=== PATIENT | male | born 1960 | race Caucasian/White ===

== ENCOUNTER 2019-01-01 01:02 | Observation (INO) ==
[2019-01-01] MEDS ORDERED: *HR* Promethazine 25 MG/ML VIAL IVP PRN (01:19)
[2019-01-01] MEDS ORDERED: *HR* LORazepam 2 MG/ML VIAL IVP PRN ×2 (01:19)
[2019-01-01] MEDS ORDERED: MVI, adult with vitamin K 10 ML in 0.9 % Sodium Chloride 1,000 ML IVC ONE (01:19)
[2019-01-01 01:52] LABS: Basophils # 0.1 K/mcL (0.0-0.2); Basophils % 0.5 %; Eosinophils # 0.1 K/mcL (0.0-0.6); Eosinophils % 0.8 %; Hemoglobin 11.2 g/dL (12.9-16.9); Immature Granulocytes % 0.9 % (0-4); Lymphocytes # 2.2 K/mcL (0.6-4.6); Lymphocytes % 13.7 %; Mean Corpuscular HGB Conc 33.9 g/dL (31.6-35.5); Mean Corpuscular Hemoglobin 34.3 pg (28.0-33.3); Mean Corpuscular Volume 100.9 fL (83.0-100.0); Mean Platelet Volume 10.4 fL (9.4-12.4); Monocytes # 1.1 K/mcL (0.0-1.3); Monocytes % 6.8 %; Neutrophils # 12.5 K/mcL (1.6-8.9); Platelet Count 344 K/mcL (140-400); Red Blood Count 3.27 M/mcL (4.19-5.50); Segmented Neutrophils % 77.3 %
[2019-01-01 01:59] LABS: Prothrombin Time 11.2 Seconds (9.4-12.1)
[2019-01-01 02:02] LABS: Activated Partial Thrombo Time 27.7 Seconds (26.0-36.0)
[2019-01-01 02:15] LABS: Alanine Aminotransferase 17 Units/L (7-52); Albumin 3.6 g/dL (3.5-5.7); Albumin/Globulin Ratio 1.6 (1.1-2.2); Alkaline Phosphatase 56 Units/L (34-104); Aspartate Amino Transferase 14 Units/L (13-39); BUN/Creatinine Ratio 36 (6-26); Bilirubin,Direct 0.1 mg/dL (0.0-0.2); Bilirubin,Indirect 0.6 mg/dL (0.0-1.2); Bilirubin,Total 0.7 mg/dL (0.3-1.0); Blood Urea Nitrogen 30 mg/dL (6-20); Calcium 8.5 mg/dL (8.6-10.3); Carbon Dioxide 18 mEq/L (23-29); Chloride 112 mEq/L (98-107); Globulin 2.3 g/dL (2.4-3.5); Glucose 106 mg/dL (70-105); Osmolality,Calculated 293 (280-300); Potassium 3.7 mEq/L (3.5-5.1); Sodium 138 mEq/L (136-145); Total Protein 5.9 g/dL (6.4-8.9); eGFR For Non-African Americans > 60 (> 60)
--- NOTE | 2019-01-01 02:23 | Internal Med History&Physical ---
Date of Encounter: 01/01/19 Time of Encounter: 02:21 Internal Medicine - H&P: HPI Chief complaint: vomiting Admitted From: Home Plans for Post Hospital Care: Home History of present illness: Gabriele Anderson is a 58-year-old male smoker with a history of COPD, coronary artery disease status post ICD and an active alcoholic who tells me he drinks a 12 pack of beer daily presenting on transfer from [facility] where he went to with complaints of nausea, vomiting and diarrhea for 3 days. Over there he was seen to have an elevated white blood cell count and lactic acid normalized after fluid resuscitation. He had a CT of his chest and abdomen/pelvis done with no acute abnormalities found. As per the presenting provider, he quietly confided in her that he has been having episodes of dark coffee-ground emesis as well as dark tarry stool in the last 2 days. For this reason he was started on fluids and transferred here for further management. At the time of my assessment he has no complaints. Vitals: Reviewed General: Well-developed male lying in bed in no acute distress. Skin: Pale, dry, warm HEENT: Moist mucous membranes. No conjunctivae pallor. Neck: No lymphadenopathy. No JVD. No carotid bruits. No palpable thyroid. Chest: Normal thoracic expansion. Normal breath sounds. Clear to auscultation. Heart: Normal S1 & S2; rhythmic. No rubs or murmurs. Abdomen: Non-distended, soft and non-tender to palpation. No peritoneal reaction. Extremities: No clubbing, cyanosis or edema. No calf tenderness. Normal distal pulses. Neurological: Awake, alert and oriented to person, place and time. No focal deficits. Psych: Affect appropriate. Internal Medicine - H&P: Meds Allergy/AdvReac Type Severity Reaction Status Date / Time No Known Allergies Allergy Verified 01/01/19 02:20 All Systems PM: A 10-system review of systems was performed and is negative for pertinent findings except as documented above in the HPI. Family history reviewed and found non-contributory. - Constitutional Vitals: Temp Pulse Resp BP Pulse Ox 98.3 F 76 18 96/65 96 01/01/19 02:20 01/01/19 02:20 01/01/19 02:20 01/01/19 02:20 01/01/19 02:20 Exam: . Internal Med - H&P Results - Labs CBC & Chem 7: 01/01/19 01:33 01/01/19 01:33 Labs: Short CBC 01/01/19 Range/Units 01:33 WBC 16.1 H (4.3-11.1) K/mcL Hgb 11.2 L (12.9-16.9) g/dL Hct 33.0 L (37.5-50.1) % Plt Count 344 (140-400) K/mcL Neutrophils # 12.5 H (1.6-8.9) K/mcL BMP 01/01/19 01:33 Sodium 138 Potassium 3.7 Chloride 112 H Carbon Dioxide 18 L BUN 30 H Creatinine 0.83 Glucose 106 H Calcium 8.5 L Liver Function 01/01/19 Range/Units 01:33 Total Bilirubin 0.7 (0.3-1.0) mg/dL Direct Bilirubin 0.1 (0.0-0.2) mg/dL AST 14 (13-39) Units/L ALT 17 (7-52) Units/L Alkaline Phosphatase 56 (34-104) Units/L Albumin 3.6 (3.5-5.7) g/dL - Assessment and Plan (1) UGIB (upper gastrointestinal bleed) Current Visit: Yes Status: Acute Assessment and plan: Presumed based on the patient's report of dark tarry stool as well as vomitus especially given his history of voluminous alcohol intake. Suspect it may be secondary to alcoholic erythematous gastritis. Will provide PPI for now. Collect a stool sample for occult blood testing as we have not witnessed it. Will keep NPO and consult GI for evaluation. (2) Leukocytosis Current Visit: Yes Status: Acute Assessment and plan: The etiology is unclear. This was equally evidenced at the outside hospital. No evidence of infection is found be it clinically or radiologically. Perhaps a response to the acute gastroenteric process he presented with? Will continue to monitor. Qualifiers: Leukocytosis type: unspecified Qualified Code(s): D72.829 - Elevated white blood cell count, unspecified (3) Alcohol abuse Current Visit: Yes Status: Acute Assessment and plan: CIWA protocol started and banana bag ordered taking into account it has been 48 hours without a drink. 5 minutes were spent counseling and educating the patient on this habit. information services assistant and resources were made available. (4) CAD (coronary artery disease) Current Visit: Yes Status: Acute Assessment and plan: Will hold antiplatelet therapy for now. Reconcile home medications. Currently asymptomatic. Monitor on telemetry. Qualifiers: Coronary Disease-Associated Artery/Lesion type: [place] artery [place] vs. transplanted heart: [place] heart Associated angina: without angina Qualified Code(s): I25.10 - Atherosclerotic heart disease of [place] coronary artery without angina pectoris (5) COPD (chronic obstructive pulmonary disease) Current Visit: Yes Status: Chronic Assessment and plan: Appears to be asymptomatic at this time. Will provide nebulizer therapy as needed. Qualifiers: COPD type: unspecified COPD Qualified Code(s): J44.9 - Chronic obstructive pulmonary disease, unspecified (6) Smoker Current Visit: Yes Status: Acute Assessment and plan: 5 minutes were spent counseling and educating the patient on this habit. information services assistant and resources were made available. - Time Spent With Patient Total time spent is greater than 50% in coordination of care (as documented) at patient's floor/unit and/or counseling patient: Greater than 35 minutes
[2019-01-01] MEDS: Pantoprazole 40 MG in 0.9 % Sodium Chloride Mini Bag 100 ML IVC SCH ×5 (06:22→23:28)
[2019-01-01] MEDS ORDERED: Aspirin Enteric Coated 81 MG Tablet PO SCH (10:45)
--- NOTE | 2019-01-01 10:49 | Event Note ---
Date of Encounter: 01/01/19 Time of Encounter: 10:46 patient examined at bedside, with no signs of distress currently. Patient voiced complaints of thirst, it was explained to the patient the importance of remaining NPO until he speaks with GI specialist. Patient states that he had one episode of tarry stool this am, which was both formed and liquid.
--- NOTE | 2019-01-01 11:07 | Anesthesia Evaluation PreOp ---
Date of Encounter: 01/01/19 Time of Encounter: 11:05 - Past History Planned Operation: EGD Cardiac History: Denies any Significant Hx (smoker with a history of COPD, coronary artery disease status post ICD and an active alcoholic who tells me he drinks a 12 pack of beer daily), Pacemaker/ICD (interogated today) Pulmonary History: Smoker, COPD DIGITAL PROJECT COORDINATOR History: Denies Any Significant HX Other Medical History: Denies Any Significant HX Anesthesia History: No Prior Anesthetic Complications Alcohol Use: heavy (12 pk beer daily) Drug use: none Medications and Allergies Aspirin [Lo-Dose Aspirin EC] 81 mg PO DAILY 01/01/19 [History] Atorvastatin Calcium [Lipitor] 20 mg PO DAILY 01/01/19 [History] Carvedilol [Coreg] 6.25 mg PO BID 01/01/19 [History] Clopidogrel [Plavix] 75 mg PO DAILY 01/01/19 [History] Furosemide [Lasix] 20 mg PO BID 01/01/19 [History] Isosorbide MONOnitrate (24 HR) [Imdur] 30 mg PO DAILY 01/01/19 [History] Pramipexole [Mirapex] 1 mg PO BID 01/01/19 [History] RX: Sacubitril/Valsartan 24/26 mg [Entresto 24 mg-26 mg Tablet] 1 tab PO BID 01/01/19 [History] Spironolactone 25 mg PO DAILY 01/01/19 [History] Allergy/AdvReac Type Severity Reaction Status Date / Time No Known Allergies Allergy Verified 01/01/19 02:20 - Meds/Allergy Pre-op Review Medications Reviewed: Yes Allergies Reviewed: Yes Beta Blockers on Current Med List: Yes If Beta Blockers taken, Date/Time (Last Dose taken): 10:39 today Anesthesia Results - Labs 01/01/19 01:33 01/01/19 01:33 - Imaging Additional studies: Echo 04/25/12 EF 35-40% trivial valvular dx No Pulm. Htn Anesthesia Exam Vital Signs/O2 Sat, Most Current Temp Pulse Resp BP Pulse Ox 97.5 F L 104 18 136/76 99 01/01/19 06:56 01/01/19 06:56 01/01/19 06:56 01/01/19 06:56 01/01/19 06:56 NPO (# of Hours): > 8 hrs Pain Scale: 0 Pain Scale Used: Numeric (1 - 10) - HEENT Pupil (Motor): Pupils equal, EOMI Mallampati: III Teeth: Edentulous Oral Opening: Greater than 3 - DIGITAL PROJECT COORDINATOR LOC: Oriented DIGITAL PROJECT COORDINATOR Motor: Normal RUE, Normal LUE, Normal RLE, Normal LLE, Normal Face DIGITAL PROJECT COORDINATOR Sensory: Normal: RUE, LUE, RLE, LLE, Face - Cardiac Rhythm: Regular Murmur: None JVD: No Carotid Bruit: No - Pulmonary Breath Sounds: bilateral Clear Respiratory Effort: Symmetrical Anesthesia Assess/Plan ASA Score: 3 Level of consciousness: Cooperative Anesthetic Plan: MAC Autologous Blood: Yes Monitoring Plan: Standard Monitors Recovery Plan: Other
[2019-01-01] MEDS ORDERED: *HR* Propofol 200 MG/20 ML VIAL IVP ONE ×2 (12:44→12:52)
--- NOTE | 2019-01-01 13:27 | Gastroenterology Consult Note ---
<Wilfrido Cardoza - Last Filed: 01/01/19 13:24> Date of Encounter: 01/01/19 Time of Encounter: 10:45 - Assessment and plan (1) UGIB (upper gastrointestinal bleed) Status: Acute Assessment and plan: Hgb 11.2 with MCV 100.9 on admission. Continue to monitor CBC and transfuse PRBC as needed. Patient with one episode of coffee-ground emesis and several episodes of dark tarry stools. Plan for EGD today to r/o esophagitis, gastritis, duodenitis, PUD, MW tear, or AVM. Keep NPO for EGD. (2) Alcohol abuse Status: Acute Assessment and plan: Encouraged alcohol cessation. - Time Spent With Patient Total time spent is greater than 50% in coordination of care (as documented) at patient's floor/unit and/or counseling patient: GI History of Present Illness - Data of Consult Patient: new to practice Consult date: 01/01/19 Requesting Physician: Mikala Doherty MD - Consult Narrative Reason for consult: GI Bleed History of present illness: Mr. Anderson is a 58 year old male with PMHx of COPD, CAD s/p ICD, alcohol abuse (drinks 12 pack beer daily) who was transferred from [facility] due to melena and coffee-ground emesis. He presented to [facility] with nausea, vomiting, and diarrhea for 3 days[address] He had a [address] of his chest and abdomen/pelvis done with no acute abnormalities found. He reports one episode of coffee-ground emesis and several episodes of dark tarry stools. He denies fever, chills, chest pain, abdominal pain, hematochezia. Hgb 11.2 with MCV 100.9 on admission. Procedures: None NSAIDs: ASA Anticoagulation: Plavix Past Med Surg Social Fam HX - Past Medical History Medical history: CHF, COPD, hypertension, myocardial infarction Additional medical history: Pacer/defib, Hernia, Depression. IA with 6 stents. Psychiatric history: depression - Social History Smoking Status: Current every day smoker Alcohol use: heavy (12 pk beer daily) Drug use: none - Family History Father Living Status: Age at : 70 Cause of : IA Hx Family Cardiac Disorders: Yes (IA) Hx Family Respiratory Disorders: Yes Hx Family Cancer: No Hx Family GI Disorders: No Hx Family Genitourinary Disorders: No Hx Family Endocrine Disorder: No Hx Family Musculoskeletal Disorders: No Hx Family Neuromuscular Disorders: No Hx Family Neurologic Disorders: No Hx Family HEENT Disorders: No Hx Family Autoimmune Disorders: No Hx Family Reproductive Disorders: No Hx Family Psychosocial Disorders: No Hx Family Medical Disorders: No Mother Living Status: Age at : 69 Cause of : [place] Hx Family Cardiac Disorders: Yes (IA) Hx Family Respiratory Disorders: Yes (COPD) Hx Family Cancer: No Hx Family GI Disorders: No Hx Family Genitourinary Disorders: No Hx Family Endocrine Disorder: Yes (DM) Hx Family Musculoskeletal Disorders: No Hx Family Neuromuscular Disorders: No Hx Family Neurologic Disorders: No Hx Family HEENT Disorders: No Hx Family Autoimmune Disorders: No Hx Family Reproductive Disorders: No Hx Family Psychosocial Disorders: No Hx Family Medical Disorders: No - Gastrointestinal Gastrointestinal: Present: as per HPI - Constitutional Constitutional: as per HPI - EENT Eyes: as per HPI Ears: Present: as per HPI Nose, mouth and throat: Present: as per HPI - Cardiovascular Cardiovascular ROS: Present: as per HPI - Respiratory Respiratory IM: Present: as per HPI - Genitourinary Genitourinary: Absent: change in color, Urinary frequency - Neurological ROS Neurological GI: Present: as per HPI - Hematologic/Lymphatic Hematologic/Lymphatic pediatric: Present: as per HPI - Musculoskeletal Musculoskeletal ROS GI: Present: as per HPI - Integumentary Integumentary GI: Present: as per HPI - Psychiatric ROS Psychiatric GI: Present: as per HPI - Endocrine Endocrine IM: Present: as per HPI - Constitutional Vitals: Temp Pulse Resp BP Pulse Ox 98.1 F 75 18 117/69 95 01/01/19 11:15 01/01/19 11:15 01/01/19 11:15 01/01/19 11:15 01/01/19 11:15 General appearance: Present: cooperative, A&O X 3, no acute distress, answers questions appropriately - Head Head exam: Present: atraumatic, normocephalic - Eye Eye exam: Present: normal appearance, sclera anicteric - ENT ENT exam: Present: mucous membranes moist - Neck Neck exam general surgery: Present: normal inspection, trachea midline - Respiratory Respiratory exam: Present: CTAB. Absent: rales, rhonchi - Cardiovascular Cardiovascular exam: Present: RRR, +S1, +S2 - GI/Abdominal GI/Abdominal exam: Present: soft, no peritoneal signs. Absent: distended, firm, guarding, tenderness - Rectal Rectal exam: Present: deferred - Extremities Exam Extremities exam: Present: warm - Neurological Exam Neurological exam: Present: no focal deficits - Psychiatric Psychiatric exam: Present: normal affect, normal mood - Skin Skin exam: Present: dry, intact, normal color, warm Results - Labs CBC & Chem 7: 01/01/19 01:33 01/01/19 01:33 Labs: Last Result Calcium 8.5 mg/dL (8.6-10.3) L 01/01/19 01:33 Stool Occult Blood Positive (Negative) A 01/01/19 07:10 Entire Visit Hgb 11.2 g/dL (12.9-16.9) L 01/01/19 01:33 Hct 33.0 % (37.5-50.1) L 01/01/19 01:33 PT 11.2 Seconds (9.4-12.1) 01/01/19 01:33 Total Bilirubin 0.7 mg/dL (0.3-1.0) 01/01/19 01:33 AST 14 Units/L (13-39) 01/01/19 01:33 ALT 17 Units/L (7-52) 01/01/19 01:33 - ABG ABG results: PT/INR, D-dimer PT 11.2 Seconds (9.4-12.1) 01/01/19 01:33 Consult Discharge Plan - Plan Instructions: Sucralfate (By mouth), Omeprazole (By mouth) Additional Instructions: Hold Plavix today and tomorrow resume on Saturday01/04/2019-stop aspirin Hold Coreg today-monitor blood pressure and keep a log Referrals: Franko Mena MD [Partnered Physician] - (Appointment has been requested. Our offices will call with an appointment time and date. ) Demetrius Tucker MD [Non-Partnered Physician] - 01/09/19 10:00 am () Prescriptions: RX: Omeprazole [PriLOSEC] 40 mg PO DAILY@0630 #30 capsule. RX: Sucralfate [Carafate] 1 gm PO QIDAC #120 tablet <Franko Mena - Last Filed: 01/07/19 05:38> Date of Encounter: 01/01/19 - Time Spent With Patient Total time spent is greater than 50% in coordination of care (as documented) at patient's floor/unit and/or counseling patient: GI History of Present Illness - Data of Consult Requesting Physician: Mikala Doherty MD - Consult Narrative History of present illness: Mr. Anderson is a 58 year old male - Constitutional Vitals: Temp Pulse Resp BP Pulse Ox 98.4 F 74 16 98/56 78 01/02/19 07:06 01/02/19 07:06 01/02/19 07:06 01/02/19 07:06 01/02/19 07:06 Results - Labs CBC & Chem 7: 01/02/19 08:25 01/02/19 08:14 Labs: Last Result Calcium 8.4 mg/dL (8.6-10.3) L 01/02/19 08:14 Stool Occult Blood Positive (Negative) A 01/01/19 07:10 Entire Visit Hgb 9.9 g/dL (12.9-16.9) L 01/02/19 08:25 Hct 29.2 % (37.5-50.1) L 01/02/19 08:25 PT 11.2 Seconds (9.4-12.1) 01/01/19 01:33 Total Bilirubin 0.7 mg/dL (0.3-1.0) 01/01/19 01:33 AST 14 Units/L (13-39) 01/01/19 01:33 ALT 17 Units/L (7-52) 01/01/19 01:33 - ABG ABG results: PT/INR, D-dimer PT 11.2 Seconds (9.4-12.1) 01/01/19 01:33 - Attending Attestation Patient with GI bleed one episode of hemetemesis and also with melena. Plan EGD as above I have personally performed a face to face evaluation on this patient. I have reviewed and agree with the care plan. History and Exam by me shows:
--- NOTE | 2019-01-01 14:11 | Anesthesia Evaluation Post Op ---
Date of Encounter: 01/01/19 Time of Encounter: 14:09 - Vital Signs Vital Signs: Vital Signs/O2 Sat/Glucose, Most Recent Temp Pulse Resp BP Pulse Ox 98.1 F 74 16 116/61 96 01/01/19 11:15 01/01/19 13:33 01/01/19 13:33 01/01/19 13:33 01/01/19 13:33 1408 98/55, 73, 16, 98%. - Lungs Lungs: Clear Ascult./Percussion - Airway Airway: Non-obstructed - Cardiovascular Regular Rate - Mental Status Mental Status: Asleep with brisk response to light stimulation - Pain Pain Scale: 0 Pain Scale used: Numeric (1 - 10) - Nausea Vomiting Nausea Vomiting: Not Present - Hydration Hydration: NPO, Has not voided - Discharge PostOp Status: Transfer Patient to floor
[2019-01-01 15:45] LABS: Basophils # 0.1 K/mcL (0.0-0.2); Basophils % 0.5 %; Eosinophils # 0.4 K/mcL (0.0-0.6); Eosinophils % 2.2 %; Hematocrit 30.9 % (37.5-50.1); Hemoglobin 10.4 g/dL (12.9-16.9); Immature Granulocytes % 0.7 % (0-4); Lymphocytes # 2.3 K/mcL (0.6-4.6); Lymphocytes % 14.1 %; Mean Corpuscular HGB Conc 33.7 g/dL (31.6-35.5); Mean Corpuscular Hemoglobin 34.6 pg (28.0-33.3); Mean Corpuscular Volume 102.7 fL (83.0-100.0); Mean Platelet Volume 10.5 fL (9.4-12.4); Monocytes # 1.1 K/mcL (0.0-1.3); Monocytes % 6.8 %; Neutrophils # 12.5 K/mcL (1.6-8.9); Platelet Count 314 K/mcL (140-400); Red Blood Count 3.01 M/mcL (4.19-5.50); Red Cell Distribution Width 14.3 % (11.5-14.5); Segmented Neutrophils % 75.7 %
[2019-01-01] MEDS: Spironolactone 25 MG TABLET PO SCH (16:47)
[2019-01-01] MEDS: Furosemide 20 MG TABLET PO SCH ×2 (16:48→18:16)
[2019-01-01] MEDS: SACUBITRIL/VALSARTAN 24/26 MG TABLET PO SCH ×2 (16:49→19:40)
[2019-01-01] MEDS: Isosorbide MONOnitrate (24 HR) 30 MG TAB.ER.24H PO SCH (16:49)
[2019-01-02] MEDS ORDERED: Melatonin 3 MG TABLET PO PRN (00:06)
[2019-01-02] MEDS: Pantoprazole 40 MG in 0.9 % Sodium Chloride Mini Bag 100 ML IVC SCH ×2 (04:35→08:51)
[2019-01-02 07:12] VITALS: BP 98/56
[2019-01-02] MEDS ORDERED: Sucralfate 1 GM TABLET PO SCH (08:15)
[2019-01-02 08:44] LABS: Basophils % 0.3 %; Eosinophils # 0.2 K/mcL (0.0-0.6); Eosinophils % 2.2 %; Hematocrit 29.2 % (37.5-50.1); Hemoglobin 9.9 g/dL (12.9-16.9); Immature Granulocytes % 0.7 % (0-4); Lymphocytes # 1.7 K/mcL (0.6-4.6); Lymphocytes % 15.8 %; Mean Corpuscular HGB Conc 33.9 g/dL (31.6-35.5); Mean Corpuscular Hemoglobin 34.9 pg (28.0-33.3); Mean Corpuscular Volume 102.8 fL (83.0-100.0); Mean Platelet Volume 10.2 fL (9.4-12.4); Monocytes # 0.7 K/mcL (0.0-1.3); Monocytes % 6.5 %; Neutrophils # 7.9 K/mcL (1.6-8.9); Platelet Count 298 K/mcL (140-400); Red Blood Count 2.84 M/mcL (4.19-5.50); Red Cell Distribution Width 13.9 % (11.5-14.5); Segmented Neutrophils % 74.5 %
[2019-01-02 09:03] LABS: BUN/Creatinine Ratio 18 (6-26); Blood Urea Nitrogen 15 mg/dL (6-20); Calcium 8.4 mg/dL (8.6-10.3); Carbon Dioxide 21 mEq/L (23-29); Chloride 112 mEq/L (98-107); Glucose 100 mg/dL (70-105); Osmolality,Calculated 287 (280-300); Potassium 3.4 mEq/L (3.5-5.1); Sodium 138 mEq/L (136-145); eGFR For Non-African Americans > 60 (> 60)
[2019-01-02] MEDS: Furosemide 20 MG TABLET PO SCH (10:24)
--- NOTE | 2019-01-02 10:25 | Discharge Summary ---
- NOTES TO OUTPATIENT PROVIDER Notes to Outpatient Provider: Noted after experiencing coffee-ground emesis was seen by GI and underwent EGD which did show-gastritis nonbleeding gastric ulcer erosive dudenopathy -monitor CBC-sucralfate suspension 1 GM PO QID Protonix 40 mg daily repeat EGD in 4 weeks- Date of Encounter: 01/02/19 Time of Encounter: 10:19 - Discharge Diagnosis (1) UGIB (upper gastrointestinal bleed) Priority: Primary Status: Acute (2) Alcohol abuse Priority: Secondary Status: Acute (3) Smoker Priority: Secondary Status: Acute (4) COPD (chronic obstructive pulmonary disease) Priority: Secondary Status: Chronic Qualifiers: COPD type: unspecified COPD Qualified Code(s): J44.9 - Chronic obstructive pulmonary disease, unspecified (5) CAD (coronary artery disease) Priority: Secondary Status: Acute Qualifiers: Coronary Disease-Associated Artery/Lesion type: [place] artery [place] vs. transplanted heart: [place] heart Associated angina: without angina Qualified Code(s): I25.10 - Atherosclerotic heart disease of [place] coronary artery without angina pectoris (6) Leukocytosis Priority: Secondary Status: Acute Qualifiers: Leukocytosis type: unspecified Qualified Code(s): D72.829 - Elevated white blood cell count, unspecified Hospital course: Mr. Anderson is a 58 year old male past medical history of COPD current smoker coronary artery disease status post ICD-stent placement 6 last stent placed in 2014 active alcohol use drinks 12 packs of beer daily presented to [facility] after complaints of nausea vomiting and diarrhea for 3 days. He did have coffee-ground emesis and dark tolerating stools last 2 days. He did have an elevated white count as well as lactic acid which normalized after fluid resuscitation. CT of chest and abdomen with no acute abnormalities 11 was 11 on presentation. He was transferred to [facility] for further workup and evaluation. Patient was seen by GI and underwent EGD which did show gastritis nonbleeding gastric ulcer erosive duodenopathy-GI recommending use of sucralfate suspension 1 g by mouth 4 times a day-Protonix 40 mg daily-patient's white count returned to baseline-globin stable he did have a low potassium this morning which was replaced. Advised patient to follow-up with GI as well as PCP. Patient will also have CBC checked as outpatient. Advised patient to return to the ER if any signs of bleeding. GI recommending holding Plavix 2 days and stopping aspirin. Also advised patient to hold Coreg today since his blood pressure was somewhat low and to monitor blood pressure. Patient verbalized understanding patient hemodynamically stable and ready for discharge at this time. - Time Spent with Patient Total time spent providing and/or coordinating discharge services: - Discharge Medications Prescriptions: New Omeprazole [PriLOSEC] 40 mg PO DAILY@0630 #30 capsule. Sucralfate [Carafate] 1 gm PO QIDAC #120 tablet Continue Atorvastatin Calcium [Lipitor] 20 mg PO DAILY Isosorbide MONOnitrate (24 HR) [Imdur] 30 mg PO DAILY Clopidogrel [Plavix] 75 mg PO DAILY Carvedilol [Coreg] 6.25 mg PO BID Pramipexole [Mirapex] 1 mg PO BID Furosemide [Lasix] 20 mg PO BID Sacubitril/Valsartan 24/26 mg [Entresto 24 mg-26 mg Tablet] 1 tab PO BID Spironolactone 25 mg PO DAILY Discontinued Aspirin [Lo-Dose Aspirin EC] 81 mg PO DAILY Home Medications: Atorvastatin Calcium [Lipitor] 20 mg PO DAILY 01/01/19 [History] Carvedilol [Coreg] 6.25 mg PO BID 01/01/19 [History] Clopidogrel [Plavix] 75 mg PO DAILY 01/01/19 [History] Furosemide [Lasix] 20 mg PO BID 01/01/19 [History] Isosorbide MONOnitrate (24 HR) [Imdur] 30 mg PO DAILY 01/01/19 [History] Pramipexole [Mirapex] 1 mg PO BID 01/01/19 [History] Sacubitril/Valsartan 24/26 mg [Entresto 24 mg-26 mg Tablet] 1 tab PO BID 01/01/19 [History] Spironolactone 25 mg PO DAILY 01/01/19 [History] Omeprazole [PriLOSEC] 40 mg PO DAILY@0630 #30 capsule. 01/02/19 [Rx] Sucralfate [Carafate] 1 gm PO QIDAC #120 tablet 01/02/19 [Rx] Allergies/Adverse Reactions: Allergy/AdvReac Type Severity Reaction Status Date / Time No Known Allergies Allergy Verified 01/01/19 02:20 Date of admission: 01/01/19 01:02 Consults: 01/01/19 01:21 Consult to Gastroenterology [CONS] Routine Consulting Provider: Malcomology Pricila Reason for Consult: 58 yo M alcoholic transferred here for upper GI bleed Call Completed: No Discharging clinician: Malika Chi Anticipated date of discharge: 01/02/19 - Constitutional Vitals: Temp Pulse Resp BP Pulse Ox 98.4 F 74 16 98/56 78 01/02/19 07:06 01/02/19 07:06 01/02/19 07:06 01/02/19 07:06 01/02/19 07:06 Exam: Skin: Free of rash and discoloration. Eyes: Sclera is white. There is no discharge from eyes. ENMT: Oral/pharyngeal mucosa is normal in appearance. There is no discharge from nose or ears. Respiratory: Normal breath sounds with no crackles and wheezes bilaterally. CV: Heart is regular with no gallop or murmur. GI: Abdomen is flat and soft with no palpable mass or visceromegaly. : There is no tenderness in patient's flanks bilaterally. Neuro exam: He has good strength in upper and lower extremities. He has normal eye movements. Psychiatric: He has normal affect. His thought process is appropriate to the situation. . - Patient Status Disposition: Home, Self-Care Condition: Good Functional capacity at discharge: independent ambulation Overall status at discharge: patient is back to baseline - Discharge Instructions Follow Up With: Demetrius Tucker MD [Non-Partnered Physician] - (Unable to schedule follow up appointment due to office being closed. Please call and make hodpital follow up appointment for 7-10 days from date of discharge. ) Additional Instructions: Hold Plavix today and tomorrow resume on Saturday01/04/2019-stop aspirin Hold Coreg today-monitor blood pressure and keep a log - Diet and Activity Activity: increase activity as tolerated Diet: advance to your usual diet
[2019-01-02] MEDS: SACUBITRIL/VALSARTAN 24/26 MG TABLET PO SCH (10:29)
[2019-01-02] MEDS: Isosorbide MONOnitrate (24 HR) 30 MG TAB.ER.24H PO SCH (10:29)
[2019-01-02] MEDS: Spironolactone 25 MG TABLET PO SCH (10:29)
== END 2019-01-02 11:43 | disposition home or self-care (01) ==
LOC: 3BNU
PROVIDERS: ADMIT Internal Medicine; ATTEND Internal Medicine